=== PATIENT | female | born 1975 | race Two or more races ===

== ENCOUNTER 2025-01-16 10:58 | Outpatient (RCR) | payer MEDICAID, SELFPAY ==
--- NOTE | 2025-01-16 11:14 | PTNOTE_ITS ---
PT OP Initial Eval Patient Information Outpatient Physical Therapy Treatment Date: 01/16/25 Visit Reasons: right knee pain Medical Diagnosis: M17.11 Start of Care: 01/16/25 Date of Onset: 2 yrs ago Smoking Status Smoking Status: Light (< 1 pack/day) Cessation Counseling Provided: HALEIGH was advised that quitting smoking is the single most important factor to protect the health of themselves and their family. Discussed the benefits of quitting smoking with patient. Encouraged patient to quit smoking and provided Cessation assistance materials and resources. Tobacco Use: Cigarette Years smoked: 25 Are you interested in quitting?: Yes Would you like additional Smoking Cessation Counseling?: No Initial Assessment Subjective: Pt is 49 yr old female who reports long Hx of chronic R knee pain and sx in 2003 with screw for ligaments. Since 2 yrs ago she has had constant pain. She normally wears a knee brace to help with the pain when she's working and sometimes at home. PMH: R knee sx 2003, L ankle pain Imaging: with provider Pt goal: to get a massage and move the knee Objective: R knee ArOM: Flexion: 105 deg Extension: full Q-angle: 25 deg Blayne's: positive Varus/valgus stress: excessive varus gapping >10mm Gait: decreased WB on R LE Assessment: Pt presents with excessive Q-angle and varus gapping along with valgus deformity of R knee consistent with OA and degenerative changes. Pt is not likely going to benefit from skilled therapy and has poor rehab potential to meet goals and will likely have more pain after therapy visits. PT recommends orthopedic consultation. Short Term and Nursing Home Goals Eval and D/C Treatment Plan Eval and D/C Certification Dates: 01/16/25 Procedure Charges OP PT Eval Mod Complex 30 minutes: Yes
== END 2025-02-13 23:59 | disposition home or self-care (01) ==
LOC: CPTX 10:58
PROVIDERS: PCP Nurse Practitioner Family; Referring Provider Nurse Practitioner Family; Visit Provider Nurse Practitioner Family
DX: M25.561 Pain in right knee (principal); G89.29 Other chronic pain; M21.061 Valgus deformity, not elsewhere classified, right knee; M17.11 Unilateral primary osteoarthritis, right knee; Z71.6 Tobacco abuse counseling; F17.210 Nicotine dependence, cigarettes, uncomplicated
CPT/HCPCS: 97162